=== PATIENT | male | born 1990 | race Caucasian/White ===

== ENCOUNTER 2018-11-06 22:20 | Inpatient (IN) | payer OTHER ==
[~2018-11-06] VITALS: Ht 152.4 cm; Wt 77.6 kg
[2018-11-06 22:39] VITALS: Ht 152.4 cm; Wt 77.6 kg
[2018-11-06 23:38] LABS: BASOPHIL % 0.3 % (0-2); PLATELET COUNT 267 x10^3mcL (130-400); RED CELL DISTRIBUTION WIDTH 13.2 % (11.5-14.5)
[2018-11-06 23:51] LABS: CALCIUM 8.4 mg/dL (8.5-10.1); CARBON DIOXIDE 27.8 mmol/L (21-32); CHLORIDE SERUM 102 mmol/L (98-107); GFR1 > 60 mL/min; GLUCOSE SERUM 121 mg/dL (74-106); POTASSIUM SERUM 3.4 mmol/L (3.5-5.1); SODIUM SERUM 139 mmol/L (136-145)
[2018-11-06 23:59] LABS: ALBUMIN 3.2 g/dL (3.4-5.0); ALKALINE PHOSPHATASE 55 U/L (46-116); ALT/SGPT 29 U/L (16-63); AST/SGOT 19 U/L (15-37); BILIRUBIN TOTAL 0.7 mg/dL (0.20-1.00); TOTAL PROTEIN, SERUM 7.7 g/dL (6.4-8.2)
[2018-11-07] LABS: C REACTIVE PROTEIN 22.4 mg/dL (<=0.9)
[2018-11-07 00:02] LABS: FREE T4 1.32 ng/dL (0.76-1.46); FREE THYROXINE INDEX 3.4 ug/dL (1.4-4.5); T4(THYROXINE) 9.7 ug/dL (4.7-13.3)
[2018-11-07 00:23] LABS: T3 TOTAL 1.17 ng/mL
[2018-11-07 00:31] LABS: ERYTHROCYTE SED RATE 91 mm/hr (0-15)
[2018-11-07] MEDS ORDERED: ALBUTEROL0.63 MG/3 IH (03:04)
[2018-11-07] MEDS ORDERED: PULMICORT180 MCG/Ac IH (03:05)
[2018-11-07 05:32] VITALS: BP 113/71
[2018-11-07 10:07] VITALS: BP 106/56
[2018-11-07 17:21] VITALS: BP 109/68
[2018-11-07 19:45] VITALS: BP 117/78
[2018-11-08 05:34] VITALS: BP 110/80
[2018-11-08 07:08] LABS: BASOPHIL % 0.2 % (0-2); PLATELET COUNT 214 x10^3mcL (130-400); RED CELL DISTRIBUTION WIDTH 13.2 % (11.5-14.5)
[2018-11-08] MEDS ORDERED: FLA500 PO (08:27)
[2018-11-08] MEDS ORDERED: CIPRO500 MG PO (08:27)
[2018-11-08] MEDS ORDERED: MOT400 PO (08:28)
[2018-11-08 08:47] VITALS: BP 110/80
[2018-11-08 08:54] VITALS: BP 112/79
[2018-11-08 12:24] LABS: CALCIUM 8.4 mg/dL (8.5-10.1); CARBON DIOXIDE 26.1 mmol/L (21-32); CHLORIDE SERUM 105 mmol/L (98-107); GFR1 > 60 mL/min; GLUCOSE SERUM 98 mg/dL (74-106); POTASSIUM SERUM 3.9 mmol/L (3.5-5.1); SODIUM SERUM 143 mmol/L (136-145)
== END 2018-11-08 13:18 | disposition home or self-care (01) | DRG 244 ==
LOC: ED 22:20 → MU 11-07 03:17
PROVIDERS: Specialist; ADMIT Internal Medicine Pulmonary Disease
DX: K57.92 Diverticulitis of intestine, part unspecified, without perforation or abscess without bleeding (principal); G47.33 Obstructive sleep apnea (adult) (pediatric); J45.909 Unspecified asthma, uncomplicated; K52.9 Noninfective gastroenteritis and colitis, unspecified
CPT/HCPCS: 84439; 87804; J0744; J1885; J1956; J3490; J7030; Q0092